=== PATIENT | male | born 1940 | race Caucasian/White ===

== ENCOUNTER 2019-03-10 08:35 | Emergency (ER) | payer MEDICARE, OTHER ==
[2019-03-10 09:05] VITALS: BP 181/81; PULSE 77
--- NOTE | 2019-03-10 10:03 | CT ---
CT facial bones Technique: Multiple axial sections through the facial bones were obtained. Reconstructed coronal and sagittal images were reviewed. Findings: Nasal bone fracture is seen. Uncertain as to the age of this fracture. Mild mucosal thickening is seen within the left maxillary sinus. Soft tissue abnormality is seen within the frontal sinuses on both sides with extension into the right ethmoid sinus. This finding causes bowing of the medial orbital wall into the right orbital space. Inner table of the frontal sinus is missing. Mild soft tissue swelling seen within the frontal scalp. Previous surgery is noted within the frontal scalp with plate and screws in place. No additional fracture or other abnormality is appreciated. Impression: 1. Nasal bone fracture, age of this is indeterminate. 2. Soft tissue abnormality within the right ethmoid sinus causing bowing of the medial orbital wall into the orbital space. Uncertain if this finding is due to previous surgery or represents paranasal sinus mass. 3. Mild soft tissue swelling within the frontal scalp. 4. No additional acute finding is seen on CT study of the facial bones. Diagnostic code #3
--- NOTE | 2019-03-10 10:03 | CT ---
Head CT Technique: Multiple axial sections through the brain were obtained. Intravenous contrast was not utilized. Comparison: No prior intracranial imaging is available. Findings: Ventricles along with basal cisterns and sulci over the convexities are mildly prominent. No abnormal parenchymal densities are seen. No evidence of intracranial hemorrhage. No midline shift or mass effect is seen. Soft tissue abnormality is seen within the frontal sinus. Posterior wall of the frontal sinuses missing. Previous surgery is noted within the frontal region with orthopedic fixation plate and screws. Old nasal bone fracture appears to be present. No acute calvarial abnormality is seen. Impression: 1. Soft tissue abnormality within the frontal sinus. Portions of the inner table of the frontal sinus are missing. Uncertain whether the soft tissue abnormality is post-surgical or represents a mass within the frontal sinuses. Previous surgery is noted within the anterior skull in this region. Old studies would be needed to differentiate (if any are available). 2. Mild generalized atrophy. 3. No acute intracranial abnormality is otherwise seen. Diagnostic code #3
--- NOTE | 2019-03-10 10:04 | CT ---
CT cervical spine Technique: Multiple axial sections were obtained from above the C1 inferiorly to the bottom of T2. Reconstructed sagittal and coronal images were reviewed. Comparison: Prior MRI cervical spine study of 02/12/12 is available. Findings: Mild spondylolisthesis is noted at C7-T1 compatible with degenerative apophyseal change. Other degenerative apophyseal change is seen throughout the cervical spine. There is disc space narrowing noted at C5-C6 and C6-C7. Posterior spurring is also noted at C5-C6 and lesser at C6-C7. Anterior osteophytes are seen at C3-C4 through C6-C7. Neural foramina are felt to be patent. No bony central canal stenosis is seen. No fracture is identified. Impression: 1. Degenerative change. No acute abnormality is appreciated on CT study of the cervical spine. Diagnostic code #2
--- NOTE | 2019-03-10 12:11 | EDM.PDOC ---
ED HPI GENERAL MEDICAL PROBLEM - General Chief Complaint: Head Injury Stated Complaint: FELL, FACIAL INJURIES Time Seen by Provider: 03/10/19 08:35 - History of Present Illness INITIAL COMMENTS - FREE TEXT/NARRATIVE: 78-year-old male presents emergency room after falling and injuring his nose and face. Shortly before arrival the patient got out of bed and walked to the bathroom. He does not think he tripped over anything but he fell forward injuring his nose and face. The patient takes aspirin he denies any other blood thinners. He' s had a lot of sinus problems over the years following an accident. He does not breathe well through his nose.. Patient does not have chest pain or breathing difficulties otherwise. Patient cannot recall why he fell. He felt fairly normal prior to this. Neck Pain Score (Numeric/FACES): 5 Face/Facial Pain Score (Numeric/FACES): 4 - Related Data Allergies Allergy/AdvReac Type Severity Reaction Status Date / Time No Known Drug Allergies Allergy Other Verified 07/08/15 06:43 Home Meds: Home Meds Hydrochlorothiazide/Losartan [Hyzaar 50-12.5 MG] 1 tab PO DAILY 07/05/15 [ History] Mometasone Furoate [Nasonex] 1 spray NASBOTH ASDIRECTED PRN 07/05/15 [History] Simvastatin [Zocor] 1 tab PO DAILY 07/05/15 [History] Multivitamins,Therapeutic [Thera] 1 each PO DAILY tablet 07/09/15 [Rx] Budesonide/Formoterol [Symbicort 160-4.5 MCG] 1 puff INH DAILY 03/10/19 [History ] Fish Oil/DHA/EPA [Fish Oil 1,200 MG] 600 mg PO DAILY 03/10/19 [History] Past Medical History HEENT History: Reports: Allergic Rhinitis, Impaired Vision, Other (See Below) Other HEENT History: Patient wears glasses Cardiovascular History: Reports: High Cholesterol, Hypertension Respiratory History: Reports: Asthma, Sleep Apnea Gastrointestinal History: Reports: GERD Genitourinary History: Reports: BPH Other Genitourinary History: bph Musculoskeletal History: Reports: Other (See Below) Other Musculoskeletal History: left hip pain Neurological History: Reports: Head Trauma, Vertigo, Other (See Below) Other Neuro History: positional vertigo Dermatologic History: Reports: Other (See Below) Other Dermatologic History: skin lesion-lipoma - Past Surgical History HEENT Surgical History: Reports: Naso-Sinus Surgery, Tonsillectomy, Other (See Below) Musculoskeletal Surgical History: Reports: Carpal Tunnel, Other (See Below) Social & Family History - Tobacco Use Smoking Status *Q: Never Smoker - Caffeine Use Caffeine Use: Reports: None - Recreational Drug Use Recreational Drug Use: No ED ROS GENERAL - Review of Systems Review Of Systems: See Below Constitutional: Reports: No Symptoms HEENT: Reports: Nose Pain, Other (Discomfort over her sinuses) Respiratory: Reports: No Symptoms. Denies: Shortness of Breath Cardiovascular: Reports: No Symptoms. Denies: Chest Pain, Palpitations Endocrine: Reports: No Symptoms GI/Abdominal: Reports: No Symptoms : Reports: No Symptoms Neurological: Reports: Other (He has chronic vertigo however it has never acted like this) ED EXAM, HEAD INJURY - Physical Exam Exam: See Below Exam Limited By: No Limitations General Appearance: Alert, No Apparent Distress, Other (He has some obvious facial injuries and a deformed nose) Head: Facial Abrasions, Other (Nasal deformity moving his nasal soft tissue to the patient's left side) Nexus Criteria: No: Posterior, Midline Cervical Tenderness, Evidence of Intoxication, Altered Level of Consciousness, Focal Neurological Deficit Eyes: Bilateral Eye: EOMI, Normal Inspection, PERRL Ears: Normal External Exam, Normal Canal, Hearing Grossly Normal, Normal TMs Nose: Other (No septal hematoma nasal soft tissue and septum moving to the patient's left more so than normal) Throat/Mouth: Normal Inspection, Normal Oropharynx Neck: Other (He has some vague midline discomfort in the lower neck C1-5 clearly nontender with palpation. After CT was negative for C-spine collar was removed patient demonstrated nontender full range of motion) Respiratory: No Respiratory Distress, Lungs Clear Cardiovascular: Regular Rate, Rhythm, No Edema, No Murmur GI/Abdominal Exam: Normal Bowel Sounds, Soft, Non-Tender, Pelvis Stable Neurologic: logistics analyst II-XII nml As Tested, No Motor/Sensory Deficits, Alert Skin: Normal Color, Warm/Dry - [place] Coma Score Best Eye Response (Hardy): (4) Open Spontaneously Best Verbal Response ([place]): (5) Oriented Best Motor Response ([place]y): (6) Obeys Commands [place] Total: 15 Course - Vital Signs Last Recorded V/S: Last Vital Signs Temp 36.3 C 03/10/19 08:50 Pulse 77 03/10/19 08:50 Resp 16 03/10/19 08:50 BP 181/81 H 03/10/19 08:50 Pulse Ox 100 03/10/19 08:50 - Orders/Labs/Meds Orders: Active Orders 24 hr Category Date Time Status EKG Documentation Completion [RC] STAT Care 03/10/19 12:18 Active Holter Monitor 48 Hours [RC] .PRN Care 03/10/19 12:05 Active DME for Discharge [COMM] Stat Oth 03/10/19 08:59 Ordered Labs: Laboratory Tests 03/10/19 03/10/19 Range/Units 09:17 09:17 WBC 5.92 (4.23-9.07) K/mm3 RBC 4.57 L (4.63-6.08) M/mm3 Hgb 14.7 D (13.7-17.5) gm/dl Hct 41.8 (40.1-51.0) % MCV 91.5 (79.0-92.2) fl MCH 32.2 (25.7-32.2) pg MCHC 35.2 (32.2-35.5) g/dl RDW Std Deviation 43.8 (35.1-43.9) fL Plt Count 150 L (163-337) K/mm3 MPV 9.8 (9.4-12.3) fl Neutrophils % (Manual) 83 H (40-60) % Band Neutrophils % 0 (0-10) % Lymphocytes % (Manual) 16 L (20-40) % Atypical Lymphs % 0 % Monocytes % (Manual) 1 L (2-10) % Eosinophils % (Manual) 0 L (0.8-7.0) % Basophils % (Manual) 0 L (0.2-1.2) Platelet Estimate Adequate RBC Morph Comment Normal Sodium 138 (136-145) mEq/L Potassium 4.0 (3.5-5.1) mEq/L Chloride 103 (98-107) mEq/L Carbon Dioxide 26 (21-32) mEq/L Anion Gap 13.0 (5-15) BUN 19 H (7-18) mg/dL Creatinine 1.0 (0.7-1.3) mg/dL Est Cr Clr Drug Dosing 56.92 mL/min Estimated GFR (MDRD) > 60 (>60) mL/min BUN/Creatinine Ratio 19.0 H (14-18) Glucose 137 H (83-115) mg/dL Calcium 9.1 (8.5-10.1) mg/dL Total Bilirubin 0.4 (0.2-1.0) mg/dL AST 23 (15-37) U/L ALT 34 (16-63) U/L Alkaline Phosphatase 77 (46-116) U/L Troponin I < 0.017 (0.00-0.056) ng/mL Total Protein 7.1 (6.4-8.2) g/dl Albumin 3.8 (3.4-5.0) g/dl Globulin 3.3 gm/dL Albumin/Globulin Ratio 1.2 (1-2) Meds: Medications Discontinued Medications Generic Name Dose Route Start Last Admin Trade Name Freq PRN Reason Stop Dose Admin Influenza Virus Vaccine 180 mcg 03/10/19 09:08 03/10/19 10:43 Fluzone High-Dose 2019-20 Syringe IM 03/10/19 09:09 180 mcg .ONCE ONE Administration - Re-Assessments/Exams Free Text/Narrative Re-Assessment/Exam: 03/10/19 13:07 Laboratory evaluation is unrevealing no acute changes noted on EKG. 48 hour [address] was applied. [address] evaluation is concerning for mass type effect the sinuses this could be due to his prior surgeries however he's having a mass effect with the right ethmoid causing some bowing of the medial orbital wall into the orbital space. He has a nose fracture I assume is acute however it was indeterminate on the CT. He has no septal hematoma noted at this point. The patient is to follow-up with Dr. Yared marin this next week, however I would recommend the patient have ENT follow-up. The patient had a 48-hour Holter applied today results of this pending. Departure - Departure Time of Disposition: 13:10 Disposition: Admitted As Inpatient 66 Clinical Impression: Nasal fracture, Head injury, Episode of syncope - Discharge Information Referrals: Bassam Vail MD [Primary Care Provider] - Forms: ED Department Discharge Additional Instructions: Return to the emergency room if any questions or problems. Return the Holter monitor as instructed. Follow-up with Dr. Yeoman early this next week, discuss ENT follow-up. As we discussed use caution when getting out of bed and after sitting up and after standing up. - My Orders Last 24 Hours: My Active Orders 03/10/19 08:59 DME for Discharge [COMM] Stat 03/10/19 12:05 Holter Monitor 48 Hours [RC] .PRN 03/10/19 12:18 EKG Documentation Completion [RC] STAT - Assessment/Plan Last 24 Hours: My Active Orders 03/10/19 08:59 DME for Discharge [COMM] Stat 03/10/19 12:05 Holter Monitor 48 Hours [RC] .PRN 03/10/19 12:18 EKG Documentation Completion [RC] STAT
== END 2019-03-10 13:30 | disposition home or self-care (01) ==
LOC: JD.ED 08:35
DX: S02.2XXA Fracture of nasal bones, initial encounter for closed fracture (principal); S09.90XA Unspecified injury of head, initial encounter; R55 Syncope and collapse; I10 Essential (primary) hypertension; J45.909 Unspecified asthma, uncomplicated; E78.00 Pure hypercholesterolemia, unspecified; Z79.51 Long term (current) use of inhaled steroids; Z79.899 Other long term (current) drug therapy; W18.30XA Fall on same level, unspecified, initial encounter; Y93.01 Activity, walking, marching and hiking; Y92.89 Other specified places as the place of occurrence of the external cause
CPT/HCPCS: 36415; 70450; 70486; 72125; 80053; 84484; 85007; 85027; 90662; 93005; 93225; 93226; 99284; G0008

== ENCOUNTER 2021-09-29 07:26 | Day surgery (SDC) | payer MEDICARE, OTHER ==
[~2021-09-29 07:26] MED LIST: EPINEPHrine 1 MG/ML SDV ONE; Lactated Ringers 1,000 ML IV SCH; Lactated Ringers 1,000 ML ONE; Lidocaine 1% 4 ML ONE; Lidocaine 1%/Sod Bicarbonate in NS 8.4% 1 ML Syringe IDERM PRN; Propofol 200 MG/20 ML SDV ONE; Rocuronium 50 MG/5 ML Vial ONE; Ropivacaine 0.5% 5 MG/ML 30 ML SDV ONE; Sodium Chloride 0.9% 10 ML Syringe FLUSH PRN; Sodium Chloride 0.9% 10 ML Syringe FLUSH SCH; ceFAZolin 1 GM Vial ONE; fentaNYL 100 MCG/2 ML SDV ONE
[2021-09-29] MEDS ORDERED: Vancomycin 1 GM SDV ONE (07:54)
[2021-09-29] MEDS ORDERED: ePHEDrine 50 MG/ML SDV ONE ×2 (09:19→09:53)
[2021-09-29] MEDS ORDERED: Ondansetron 4 MG/2 ML SDV ONE (10:28)
[2021-09-29] MEDS ORDERED: Ondansetron 4 MG/2 ML SDV IVPUSH PRN (10:55)
[2021-09-29] MEDS ORDERED: fentaNYL 100 MCG/2 ML SDV IVPUSH PRN (10:55)
[2021-09-29] MEDS ORDERED: Acetaminophen/HYDROcodone 325-5 MG Tab PO ONE (11:04)
[2021-09-29 14:10] VITALS: BP 114/67; PULSE 61
== END 2021-09-29 13:58 | disposition home or self-care (01) ==
LOC: JD.SDS 07:26
PROVIDERS: ATTEND Orthopaedic Surgery
DX: M19.012 Primary osteoarthritis, left shoulder (principal); I10 Essential (primary) hypertension; G47.33 Obstructive sleep apnea (adult) (pediatric); I25.10 Atherosclerotic heart disease of native coronary artery without angina pectoris; J45.909 Unspecified asthma, uncomplicated; E78.5 Hyperlipidemia, unspecified; K21.9 Gastro-esophageal reflux disease without esophagitis; Z79.899 Other long term (current) drug therapy; Z79.82 Long term (current) use of aspirin
CPT/HCPCS: 23472; 73020; 76000; 97161; A9270; C1713; C1769; C1776; J0171; J0690; J2405; J2704; J2710; J2795; J3010; J3370; J7120; 01638; 64415; 76942; 99100

== ENCOUNTER 2024-10-12 08:23 | Day surgery (SDC) | payer MEDICARE, OTHER ==
[~2024-10-12 08:23] MED LIST changes: +Bupivacaine 0.25% 10 ML SDV ONE; -EPINEPHrine 1 MG/ML SDV ONE; -Lactated Ringers 1,000 ML IV SCH; -Lactated Ringers 1,000 ML ONE; -Lidocaine 1% 4 ML ONE; -Lidocaine 1%/Sod Bicarbonate in NS 8.4% 1 ML Syringe IDERM PRN; -Propofol 200 MG/20 ML SDV ONE; -Rocuronium 50 MG/5 ML Vial ONE; -Ropivacaine 0.5% 5 MG/ML 30 ML SDV ONE; -ceFAZolin 1 GM Vial ONE; -fentaNYL 100 MCG/2 ML SDV ONE
[2024-10-12] MEDS: Lactated Ringers 1,000 ML IV SCH (09:00)
[2024-10-12] MEDS ORDERED: Ondansetron 4 MG/2 ML SDV ONE (09:06)
[2024-10-12] MEDS ORDERED: Lidocaine 2% 5 ML SDV ONE (09:06)
[2024-10-12] MEDS ORDERED: Sugammadex Sodium 200 MG/2 ML VIAL IV ONE (09:06)
[2024-10-12] MEDS ORDERED: Propofol 200 MG/20 ML SDV ONE (09:07)
[2024-10-12] MEDS ORDERED: fentaNYL 100 MCG/2 ML SDV ONE (09:07)
[2024-10-12] MEDS ORDERED: ceFAZolin 2 GM Vial ONE (09:08)
[2024-10-12] MEDS ORDERED: Bupivacaine 0.25% 30 ML SDV ONE (09:08)
[2024-10-12] MEDS ORDERED: Ropivacaine 0.5% 5 MG/ML 30 ML SDV ONE (09:08)
[2024-10-12] MEDS ORDERED: Midazolam 1 MG/ML 2 ML SDV ONE (09:19)
[2024-10-12] MEDS ORDERED: Rocuronium 50 MG/5 ML Vial ONE (09:45)
[2024-10-12] MEDS ORDERED: Phenylephrine 1% 10 MG/ML SDV ONE (10:10)
[2024-10-12] MEDS ORDERED: ePHEDrine 50 MG/ML SDV ONE (10:10)
[2024-10-12] MEDS: VANCOmycin 1 GM SDV ONE (10:57)
[2024-10-12] MEDS: Tranexamic Acid 1,000 MG/10 ML Vial ONE (10:57)
[2024-10-12] MEDS ORDERED: Lactated Ringers 1,000 ML ONE (11:07)
[2024-10-12] MEDS ORDERED: fentaNYL 100 MCG/2 ML SDV IVPUSH PRN (11:33)
[2024-10-12] MEDS ORDERED: Ondansetron 4 MG/2 ML SDV IVPUSH PRN (11:33)
[2024-10-12] MEDS ORDERED: HYDROmorphone 0.5 MG/0.5 ML Syringe IVPUSH PRN (11:33)
[2024-10-12] MEDS: Acetaminophen/HYDROcodone 325-5 MG Tab PO PRN (13:10)
[2024-10-12 14:48] VITALS: BP 122/65; PULSE 58
== END 2024-10-12 14:40 | disposition home or self-care (01) ==
LOC: JD.SDS 08:23
PROVIDERS: ATTEND Orthopaedic Surgery
DX: M19.011 Primary osteoarthritis, right shoulder (principal); I10 Essential (primary) hypertension; E78.2 Mixed hyperlipidemia; J45.20 Mild intermittent asthma, uncomplicated; I25.10 Atherosclerotic heart disease of native coronary artery without angina pectoris; K21.9 Gastro-esophageal reflux disease without esophagitis; Z79.899 Other long term (current) drug therapy
CPT/HCPCS: 23472; 76000; 97162; 97530; A9270; C1713; C1769; C1776; J0665; J0690; J2003; J2250; J2371; J2405; J2704; J2795; J3010; J7120; 01638; 64415; 99100; J3490